=== PATIENT | male | born 1980 | race African-American/Black ===

== ENCOUNTER 2017-09-06 21:54 | Emergency (ER) | payer SELFPAY ==
[2017-09-06 22:10] VITALS: BP 122/69; PULSE 86; TEMP 97.9; BMI 27.5
--- NOTE | 2017-09-06 22:40 | PDOC ---
History of Present Illness - General Chief Complaint: Back Pain Stated Complaint: PAIN, ACUTE Time Seen by Provider: 09/06/17 22:11 History Source: Patient Exam Limitations: No Limitations - History of Present Illness Initial Comments: 09/06/17 22:58 37-year-old male presents to the emergency department complaining of right sided muscular discomfort 4 hours. Patient states he believes he slept wrong on his right side causing muscular pain. Patient denies any injuries, falls, trauma, headaches, dizziness, lightheadedness, neck pain, back pains, chest pain , shortness of breath, abdominal pains, Oskar numbness or tingling sensation, bladder or bowel dysfunction. Past History - Past Medical History Allergies/Adverse Reactions: Allergies Allergy/AdvReac Type Severity Reaction Status Date / Time No Known Allergies Allergy Verified 09/06/17 22:10 Home Medications: Ambulatory Orders NK [No Known Home Medication] 09/06/17 COPD: No - Suicide/Smoking/Psychosocial Hx Smoking History: Never smoked Have you smoked in the past 12 months: No Information on smoking cessation initiated: No Hx Alcohol Use: No Drug/Substance Use Hx: No Substance Use Type: None Review of Systems - Review of Systems Able to Perform ROS?: Yes Comments:: 09/06/17 22:47 CONSTITUTIONAL: Absent: fever, chills, diaphoresis, generalized weakness, malaise, loss of appetite HEENT: Absent: rhinorrhea, nasal congestion, throat pain, throat swelling, difficulty swallowing, mouth swelling, ear pain, eye pain, visual Changes CARDIOVASCULAR: Absent: chest pain, loss of consciousness, palpitations, irregular heart rate, peripheral edema RESPIRATORY: Absent: cough, shortness of breath, dyspnea with exertion, orthopnea, wheezing, stridor, hemoptysis GASTROINTESTINAL: Absent: abdominal pain, abdominal distension, nausea, vomiting, diarrhea, constipation, melena, hematochezia GENITOURINARY: Absent: dysuria, frequency, urgency, hesitancy, hematuria, flank pain, genital pain MUSCULOSKELETAL: +myalgia Absent: arthralgia, joint swelling SKIN: Absent: rash, itching, pallor HEMATOLOGIC/IMMUNOLOGIC: Absent: easy bleeding, easy bruising, lymphadenopathy, frequent infections ENDOCRINE: Absent: unexplained weight gain, unexplained weight loss, heat intolerance, cold intolerance NEUROLOGIC: Absent: headache, focal weakness or paresthesias, dizziness, unsteady gait, seizure, mental status changes, bladder or bowel incontinence PSYCHIATRIC: Absent: anxiety, depression, suicidal or homicidal ideation, hallucinations. Is the patient limited Uzbek proficient: No *Physical Exam - Vital Signs Last Vital Signs Temp Pulse Resp BP Pulse Ox 97.9 F 86 18 122/69 100 09/06/17 22:05 09/06/17 22:05 09/06/17 22:05 09/06/17 22:05 09/06/17 22:05 - Physical Exam Comments: 09/06/17 22:47 GENERAL: Well developed, well nourished. Awake and alert. No acute distress. HEENT: Normocephalic, atraumatic. PERRLA, EOMI. No conjunctival pallor. Sclera are non- icteric. Moist mucous membranes. Oropharynx is clear. NECK: Supple. Full ROM. No JVD. Carotid pulses 2+ and symmetric, without bruits. No thyromegaly. No lymphadenopathy. CARDIOVASCULAR: Regular rate and rhythm. No murmurs, rubs, or gallops. Distal pulses are 2+ and symmetric. PULMONARY: No evidence of respiratory distress. Lungs clear to auscultation bilaterally. No wheezing, rales or rhonchi. ABDOMINAL: Soft. Non-tender. Non-distended. No rebound or guarding. No organomegaly. Normoactive bowel sounds. MUSCULOSKELETAL Normal range of motion at all joints. No bony deformities or tenderness. No CVA tenderness. EXTREMITIES: No cyanosis. No clubbing. No edema. No calf tenderness. SKIN: Warm and dry. Normal capillary refill. No rashes. No jaundice. NEUROLOGICAL: Alert, awake, appropriate. Cranial nerves 2-12 intact. No deficits to light touch and temperature in face, upper extremities and lower extremities. No motor deficits in the in face, upper extremities and lower extremities. Normoreflexic in the upper and lower extremities. Normal speech. Toes are down- going bilaterally. Gait is normal without ataxia. PSYCHIATRIC: Cooperative. Good eye contact. Appropriate mood and affect. *DC/Admit/Observation/Transfer Diagnosis at time of Disposition: Muscular pain - Discharge Dispostion Disposition: HOME Condition at time of disposition: Stable Admit: No - Referrals Referrals: Kapil Barraza MD [Staff Physician] - - Patient Instructions Printed Discharge Instructions: DI for Musculoskeletal Pain Additional Instructions: Ice; 20 mins on alternating with 20 mins off for 48 hours while awake. Rest Follow up with your orthopedic surgeon or the one listed on the discharge form. Return to the ER for severe/persistent/worsening symptoms, extremity numbness/ tingling sensation. - Post Discharge Activity
[2017-09-06] MEDS ORDERED: KETOROLAC TROMETHAMINE 60 MG/2 ML VIAL IM ONE (22:43)
[2017-09-06] MEDS ORDERED: KETOROLAC TROMETHAMINE 30 MG/1 ML VIAL ONE (22:49)
== END 2017-09-06 23:02 | disposition home or self-care (01) ==
LOC: JERFT 21:54
PROC: 3E0233Z Introduction of Anti-inflammatory into Muscle, Percutaneous Approach (ICD-10-PCS; principal; 2017-09-06)
DX: M79.1 Myalgia (principal)
CPT/HCPCS: 99281-25

== ENCOUNTER 2017-10-31 22:57 | Emergency (ER) | payer SELFPAY ==
[2017-11-01 00:30] VITALS: BP 122/93; PULSE 89; TEMP 98.3; BMI 27.6
[2017-11-01] MEDS ORDERED: ALBUTEROL SO4 2.5/IPRATROPIUM 0.5 INH SOL 3 ML VIAL.NEB. NEB ONE ×2 (00:31→00:34)
[2017-11-01] MEDS ORDERED: guaiFENesin 200 MG/10 ML 10 ML UNIT-DOSE CUPS PO ONE (00:31)
[2017-11-01] MEDS ORDERED: guaiFENesin/D-METHORPHAN HB 10 ML UNIT-DOSE CUPS ONE (00:34)
--- NOTE | 2017-11-01 01:21 | PDOC ---
History of Present Illness - General Chief Complaint: Pain Stated Complaint: FATIGUE Time Seen by Provider: 11/01/17 00:01 History Source: Patient Exam Limitations: No Limitations - History of Present Illness Initial Comments: 11/01/17 00:40 Patient is a 37-year-old male history of scoliosis with rods, c/o cough x 3 days. Describes the cough as a mostly dry, occasionally white sputum. States subjective fever yesterday, chest pain with coughing which is 7/10. States "I just want to check to make sure I dont have Pneumonia". Denies runny nose, nasal congestion. States his son was sick started last week with an upper respiratory infection then eventually was treated for bilateral ear infection. Past medical history: As above Social history: Negative cigarettes, EtOH, drugs All: NKDA GENERAL/CONSTITUTIONAL: [No fever or chills. No weakness. No weight change.] HEAD, EYES, EARS, NOSE AND THROAT: [No change in vision. No ear pain or discharge. No sore throat.] CARDIOVASCULAR: [No chest pain or shortness of breath.] RESPIRATORY: (+)cough, (-) wheezing, or hemoptysis.] GASTROINTESTINAL: [No nausea, vomiting, diarrhea or constipation. No rectal bleeding.] GENITOURINARY: [No dysuria, frequency, or change in urination.] MUSCULOSKELETAL: [No joint or muscle swelling or pain. No neck or back pain.] SKIN AND BREASTS: [No rash or easy bruising.] NEUROLOGIC: [No headache, vertigo, loss of consciousness, or loss of sensation.] PSYCHIATRIC: [No depression or anxiety.] ENDOCRINE: [No increased thirst. No abnormal weight change.] HEMATOLOGIC/LYMPHATIC: [No anemia, easy bleeding, or history of blood clots.] ALLERGIC/IMMUNOLOGIC: [No hives or skin allergy. No latex allergy.] GENERAL: [The patient is awake, alert, and fully oriented, in no acute distress , occasional cough.] HEAD: [Normal with no signs of trauma.] EYES: [Pupils equal, round and reactive to light, extraocular movements intact, sclera anicteric, conjunctiva clear.] ENT: [Ears normal, nares patent, oropharynx clear without exudates. Moist mucous membranes.] NECK: [Normal range of motion, supple without lymphadenopathy, JVD, or masses.] LUNGS: [Breath sounds equal, clear to auscultation bilaterally. No wheezes, and no crackles.] HEART: [Regular rate and rhythm, normal S1 and S2 without murmur, rub.] ABDOMEN: [Soft, nontender, normoactive bowel sounds. No guarding, no rebound. No masses.] EXTREMITIES: [Normal range of motion, no edema. No clubbing or cyanosis. No cords, erythema, or tenderness.] NEUROLOGICAL: [Cranial nerves II through XII grossly intact. Normal speech, normal gait.] PSYCH: [Normal mood, normal affect.] SKIN: [Warm, Dry, normal turgor, no rashes or lesions noted.] 11/01/17 01:38 Past History - Past Medical History Allergies/Adverse Reactions: Allergies Allergy/AdvReac Type Severity Reaction Status Date / Time No Known Allergies Allergy Verified 11/01/17 00:26 Home Medications: Ambulatory Orders NK [No Known Home Medication] 09/06/17 COPD: No Other medical history: Scoliosis - Suicide/Smoking/Psychosocial Hx Smoking History: Never smoked Have you smoked in the past 12 months: No Information on smoking cessation initiated: No Hx Alcohol Use: No Drug/Substance Use Hx: No Substance Use Type: None *Physical Exam - Vital Signs Last Vital Signs Temp Pulse Resp BP Pulse Ox 98.3 F 89 19 122/93 97 11/01/17 00:26 11/01/17 00:26 11/01/17 00:26 11/01/17 00:26 11/01/17 00:26 ED Treatment Course - RADIOLOGY Radiology Studies Ordered: Category Date Time Status CHEST PA & LAT [RAD] Stat Radiology 11/01/17 00:29 Ordered Medical Decision Making - Medical Decision Making 11/01/17 01:31 Patient is a 37-year-old male history of scoliosis with rods, c/o cough x 3 days , who has had sick contact with a child with who had upper respiratory infection. Symptoms are consistent with an upper respiratory infection with treat as such. Chest X-ray ruled out pneumonia, Duo neb. CXR neg I discussed the physical exam findings, ancillary test results and final diagnoses with the patient. I answered all of the patient's questions. The patient was satisfied with the care received and felt comfortable with the discharge plan and treatment plan. The Patient agrees to follow up with the primary care physician within 24-72 hours. *DC/Admit/Observation/Transfer Diagnosis at time of Disposition: Atypical chest pain URI (upper respiratory infection) Qualifiers: URI type: unspecified viral URI Qualified Code(s): J06.9 - Acute upper respiratory infection, unspecified - Discharge Dispostion Disposition: HOME Condition at time of disposition: Stable - Referrals - Patient Instructions Printed Discharge Instructions: DI for Viral Upper Respiratory Infection -- Adult Additional Instructions: Your Discharge Instructions: You must call primary care physician within 24 hours to arrange follow-up. Return to the Emergency Department with any new, persistent or worsening symptoms, for fever, chills, SOB, dizziness or any other concerning changes that may occur. - Post Discharge Activity
== END 2017-11-01 01:47 | disposition home or self-care (01) ==
LOC: JER 22:57
PROC: 3E0F7GC Introduction of Other Therapeutic Substance into Respiratory Tract, Via Natural or Artificial Opening (ICD-10-PCS; principal; 2017-10-31)
DX: J06.9 Acute upper respiratory infection, unspecified (principal); R07.89 Other chest pain
CPT/HCPCS: 71046-TC; 99282-25

== ENCOUNTER 2017-11-05 14:37 | Emergency (ER) | payer SELFPAY ==
--- NOTE | 2017-11-05 15:29 | PDOC ---
Rapid Medical Evaluation Time Seen by Provider: 11/05/17 15:29 Medical Evaluation: Allergies Allergy/AdvReac Type Severity Reaction Status Date / Time No Known Allergies Allergy Verified 11/01/17 00:26 11/05/17 15:29 I have performed a brief in-person evaluation of this patient. The patient presents with a chief complaint of: cough w/ malaise, chills x several days, seen in ED 10/31 w/ neg CXR Pertinent physical exam findings:Unremarkable exam I have ordered the following:flu swab The patient will proceed to the ED for further evaluation. 11/05/17 15:30 11/05/17 15:32
[2017-11-05 15:34] VITALS: BP 113/75; PULSE 81; TEMP 98.1; BMI 27.6
[2017-11-05] MEDS ORDERED: predniSONE 20 MG TABLET (UD) ONE (16:27)
[2017-11-05] MEDS ORDERED: predniSONE 20 MG TABLET (UD) PO ONE (16:31)
[2017-11-05] MEDS ORDERED: ALBUTEROL SO4 2.5/IPRATROPIUM 0.5 INH SOL 3 ML VIAL.NEB. NEB ONE ×2 (16:31→16:56)
--- NOTE | 2017-11-05 16:35 | PDOC ---
History of Present Illness - General Chief Complaint: Cold Symptoms Stated Complaint: FOLLOW UP Time Seen by Provider: 11/05/17 15:29 History Source: Patient Exam Limitations: No Limitations - History of Present Illness Initial Comments: 11/05/17 16:27 Return to this emergency Department from previous visit 5 days ago to be reevaluated for persistent fevers, cough with thick yellowish phlegm, shortness of breath and some mild dizziness. States last week he had chest x-ray that ruled out pneumonia, and was discharged with a viral syndrome and no medications. Patient states has been using Robitussin and [id number] cold medicines with minimal resolved. States is persistent cough and in fact phlegm has worsened. Patient states is felt fevers and chills, generalized body aches, and has not felt any resolved since last week. Timing/Duration: reports: getting worse Severity: reports: mild, moderate Associated Symptoms: reports: cough, earache, fever/chills, lightheadedness, muscle aches, nasal congestion, nasal drainage Past History - Travel Traveled outside of the country in the last 30 days: No Close contact w/someone who was outside of country & ill: No - Past Medical History Allergies/Adverse Reactions: Allergies Allergy/AdvReac Type Severity Reaction Status Date / Time No Known Allergies Allergy Verified 11/01/17 00:26 Home Medications: Ambulatory Orders Albuterol Sulfate Inhaler - [Ventolin HFA Inhaler -] 1 - 2 inh PO Q4H #1 inhaler 11/05/17 Azithromycin [Zithromax -] 250 mg PO UTDICT #6 tab 11/05/17 Prednisone [Deltasone -] 20 mg PO BID #8 tablet 11/05/17 COPD: No - Suicide/Smoking/Psychosocial Hx Smoking History: Never smoked Have you smoked in the past 12 months: No Information on smoking cessation initiated: No Hx Alcohol Use: No Drug/Substance Use Hx: No Substance Use Type: None Review of Systems - Review of Systems Able to Perform ROS?: Yes Is the patient limited Ghanaian proficient: Yes Constitutional: Yes: Symptoms Reported, See HPI, Chills, Fever, Loss of Appetite , Malaise HEENTM: Yes: Symptoms Reported, See HPI Respiratory: Yes: Symptoms reported, See HPI, Wheezing Cardiac (ROS): No: Symptoms Reported Integumentary: Yes: Symptoms Reported, See HPI All Other Systems: Reviewed and Negative *Physical Exam - Vital Signs Last Vital Signs Temp Pulse Resp BP Pulse Ox 98.1 F 81 18 113/75 98 11/05/17 15:32 11/05/17 15:32 11/05/17 15:32 11/05/17 15:32 11/05/17 15:32 - Physical Exam General Appearance: Yes: Nourished, Appropriately Dressed, Apparent Distress, Moderate Distress HEENT: positive: TMs Normal, Pharyngeal Erythema, Nasal Congestion, Rhinorrhea Neck: positive: Supple, Lymphadenopathy (R), Lymphadenopathy (L) (congested but landmarks easily visualized). negative: Tender Respiratory/Chest: positive: Wheezing. negative: Lungs Clear (inspiratory and expiratory breath sounds) Cardiovascular: positive: Regular Rate Gastrointestinal/Abdominal: positive: Normal Bowel Sounds, Soft. negative: Tender, Distended, Guarding, Rebound Musculoskeletal: positive: Normal Inspection. negative: CVA Tenderness Extremity: positive: Normal Capillary Refill, Normal Inspection. negative: Tender Integumentary: positive: Normal Color, Dry, Warm, Pale Neurologic: positive: senior data mining analyst II-XII NML intact, Fully Oriented, Alert, Normal Mood/ Affect, Normal Response, Motor Strength 5/ ED Treatment Course - ADDITIONAL ORDERS Additional order review: 11/05/17 15:30 Influenza Types A,B Antigen (BARBARA) - Final Nasopharyngeal Swab - Final *DC/Admit/Observation/Transfer Diagnosis at time of Disposition: URI (upper respiratory infection) Qualifiers: URI type: unspecified URI Qualified Code(s): J06.9 - Acute upper respiratory infection, unspecified - Discharge Dispostion Disposition: HOME Condition at time of disposition: Stable Admit: No - Prescriptions Prescriptions: Albuterol Sulfate Inhaler - [Ventolin HFA Inhaler -] 1 - 2 inh PO Q4H #1 inhaler Azithromycin [Zithromax -] 250 mg PO UTDICT #6 tab Prednisone [Deltasone -] 20 mg PO BID #8 tablet - Referrals - Patient Instructions Printed Discharge Instructions: DI for Acute Bronchitis Additional Instructions: Rest, drink lots of fluids: Teas, water, soups, Pedialyte Saltwater gargles Steamy showers/seem to face break up mucus Avoid contact with others until fevers and cough resolved Lots of handwashing and good hygiene Continue [id number] medications for symptomatic relief Tylenol or Motrin for fever and pain Continue albuterol nebulizers every 4-6 hours for the next 2 days then as needed for continued cough Prednisone as directed until completed Followup with private physician in one to 2 days Return to emergency department / pediatric hospital for worsened symptoms, fevers, dehydration - Post Discharge Activity Forms/Work/School Notes: Back to Work
== END 2017-11-05 17:22 | disposition home or self-care (01) ==
LOC: JERFT 14:37
PROC: 3E0F7GC Introduction of Other Therapeutic Substance into Respiratory Tract, Via Natural or Artificial Opening (ICD-10-PCS; principal; 2017-11-05)
PROC: 3E0F7GC Introduction of Other Therapeutic Substance into Respiratory Tract, Via Natural or Artificial Opening (ICD-10-PCS; 2017-11-05)
DX: J20.9 Acute bronchitis, unspecified (principal)
CPT/HCPCS: 87804; 99281-25

== ENCOUNTER 2018-03-24 09:16 | Emergency (ER) | payer SELFPAY ==
[2018-03-24 09:24] VITALS: BP 110/71; PULSE 73; TEMP 97.9; BMI 26.4
--- NOTE | 2018-03-24 09:55 | PDOC ---
History of Present Illness - General Chief Complaint: Injury Stated Complaint: LT HAND INJURY Time Seen by Provider: 03/24/18 09:44 History Source: Patient Exam Limitations: No Limitations - History of Present Illness Initial Comments: CHIEF COMPLAINT: 38 y/o male with left hand bump for 5 days. HISTORY OF PRESENT ILLNESS: Patient denies trauma. States appeared out of nowhere. No fever, pain, decreased ROM, streaking. Vital signs on arrival are within normal limits REVIEW OF SYSTEMS: GENERAL/CONSTITUTIONAL: No fever/chills. No weakness. No weight change. MUSCULOSKELETAL: +bump to left hand. No neck or back pain. SKIN: No rash or easy bruising. NEUROLOGIC: No headache, vertigo, loss of consciousness, or loss of sensation. PHYSICAL EXAM: VITAL_SIGNS: within normal limits GENERAL_APPEARANCE: alert, cooperative, no obvious discomfort. MENTAL_STATUS: speech clear, oriented X 3, responds appropriately to questions. NEURO: motor intact and sensory intact in injured extremity. EXTREMITIES: 1cm well circumscribed, mobile, non tender cyst to left dorsal hand along 2nd distal metacarpal, consistent with ganglion cyst. No streaking, warmth or erythema to surrounding area. Full ROM of fingers and hand. SKIN: warm, dry, good color. Past History - Past Medical History Allergies/Adverse Reactions: Allergies Allergy/AdvReac Type Severity Reaction Status Date / Time No Known Allergies Allergy Verified 03/24/18 09:20 Home Medications: Ambulatory Orders Albuterol Sulfate Inhaler - [Ventolin HFA Inhaler -] 1 - 2 inh PO Q4H #1 inhaler 11/05/17 Azithromycin [Zithromax -] 250 mg PO UTDICT #6 tab 11/05/17 predniSONE [Deltasone -] 20 mg PO BID #8 tablet 11/05/17 COPD: No - Suicide/Smoking/Psychosocial Hx Smoking History: Never smoked Have you smoked in the past 12 months: No Hx Alcohol Use: No Drug/Substance Use Hx: No Substance Use Type: None *Physical Exam - Vital Signs Last Vital Signs Temp Pulse Resp BP Pulse Ox 97.9 F 73 18 110/71 100 03/24/18 09:22 03/24/18 09:22 03/24/18 09:22 03/24/18 09:22 03/24/18 09:22 Medical Decision Making - Medical Decision Making A/P: 38 y/o male with left hand ganglion cyst. Suggested motrin for pain if needed and f/u with surgeon. The patient verbalizes understanding of all instructions, has no further questions and is awaiting discharge. *DC/Admit/Observation/Transfer Diagnosis at time of Disposition: Ganglion cyst of finger of left hand - Discharge Dispostion Disposition: HOME Condition at time of disposition: Good - Referrals Referrals: Isaac Campos MD [Staff Physician] - Call tomorrow - Patient Instructions Printed Discharge Instructions: Ganglion Cyst Additional Instructions: Discharge Instructions: -You have what appears to be a ganglion cyst -Please follow up with Dr. Campos for options for removal -Take Motrin if needed for pain - Post Discharge Activity Forms/Work/School Notes: Back to Work
== END 2018-03-24 10:20 | disposition home or self-care (01) ==
LOC: JERFT 09:16
DX: M67.442 Ganglion, left hand (principal)
CPT/HCPCS: 99281-25

== ENCOUNTER 2018-06-09 17:05 | Emergency (ER) | payer SELFPAY ==
--- NOTE | 2018-06-09 17:08 | PDOC ---
Rapid Medical Evaluation Time Seen by Provider: 06/09/18 17:06 Medical Evaluation: Allergies Allergy/AdvReac Type Severity Reaction Status Date / Time No Known Allergies Allergy Verified 06/09/18 17:06 I have performed a brief in-person evaluation of this patient. The patient presents with a chief complaint of: right upper back pain worse with movement x 6 days Pertinent physical exam findings: pain reproduced with palpation of right medial scapular border I have ordered the following: nothing The patient will proceed to the ED for further evaluation. Discharge Disposition - Diagnosis Muscular pain - Referrals - Patient Instructions - Post Discharge Activity
[2018-06-09 17:10] VITALS: BP 108/58; PULSE 86; TEMP 98.3; BMI 27.3
--- NOTE | 2018-06-09 17:31 | PDOC ---
History of Present Illness - General Chief Complaint: Back Pain Stated Complaint: BACK PAIN Time Seen by Provider: 06/09/18 17:06 History Source: Patient Exam Limitations: No Limitations - History of Present Illness Initial Comments: Patient is a 38-year-old male who states that over the past 3 days he has had pain located in the muscles adjacent to the thoracic spine on the right. He denies injury or trauma. Patient does have a history of scoliosis and had spinal revision approximately 20 years ago. Patient denies injury or trauma. Patient denies urinary symptoms. Patient denies loss of bowel/bladder control or urinary retention. Patient denies upper or lower extremity paresthesia. He denies fever or history of IV drug use. He describes the pain as a throb and rates at a 5 out of 10. He states it is worse with movement. He denies attempting [id number] medications. Patient denies any relieving factors. 06/09/18 17:26 Past History - Travel Traveled outside of the country in the last 30 days: No Close contact w/someone who was outside of country & ill: No - Past Medical History Allergies/Adverse Reactions: Allergies Allergy/AdvReac Type Severity Reaction Status Date / Time No Known Allergies Allergy Verified 06/09/18 17:06 Home Medications: Ambulatory Orders Cyclobenzaprine HCl 5 mg PO TID PRN 3 Days #10 tablet 06/09/18 COPD: No Other medical history: scoliosis - Suicide/Smoking/Psychosocial Hx Smoking History: Never smoked Have you smoked in the past 12 months: No Information on smoking cessation initiated: No Hx Alcohol Use: No Drug/Substance Use Hx: No Substance Use Type: None Review of Systems - Review of Systems Able to Perform ROS?: Yes Musculoskeletal: Yes: Back Pain. No: Neck Pain All Other Systems: Reviewed and Negative *Physical Exam - Vital Signs Last Vital Signs Temp Pulse Resp BP Pulse Ox 98.3 F 86 18 108/58 100 06/09/18 17:06 06/09/18 17:06 06/09/18 17:06 06/09/18 17:06 06/09/18 17:06 - Physical Exam Comments: Constitutional: VS stated, pt appears in no apparent distress; ambulated to exam room, steady gait noted. Skin: Warm and dry. Intact, no lesions or excoriations. Patient has 2 scars on his back from his previous scoliosis revision. No signs of secondary infection. Head: Normocephalic; atraumatic Eyes: conjunctiva pink without injection or discharge. Throat: Oropharynx with pink and moist mucosa. Neck: Supple, non-tender, with full ROM, trachea midline, no anterior/posterior cervical chain lymphadenopathy, thyroid nonpalpable. No stridor or bruits. Lungs: Bilateral breath sounds clear upon auscultation. No adventitious breath sounds. Heart: Regular rate and rhythm, S1/S2 auscultated. No murmurs, rubs, or gallops. No visible pulsations, heaves, or lifts on precordium. Abdomen: Soft and non-tender. Bowel sounds present in all 4 quadrants, no hepatosplenomegaly, No bruits auscultated. No guarding or rebound. No masses or visible pulsations present. No suprapubic tenderness. No CVAT. No bruits. Musculoskeletal:Normal curves of cervical, thoracic, and lumbar spine. Full ROM of cervical and lumbar spine. Proximal joints normal; neck, arms, hips, knees, and ankles with full range of active and passive motion. Muscles appear symmetric. Sensation intact medially and laterally. No saddle anesthesia. DTRs+ 2. No tenderness on palpation of spine. 5/5 strength in upper extremities and lower extremity groups. Neurologic: Awake, alert. Conversation fluent. Psychiatric: Appropriate affect. 06/09/18 17:28 Medical Decision Making - Medical Decision Making Patient has had no injury or trauma. He has no pain upon palpation of the cervical, thoracic or lumbosacral spine. I feel this more musculoskeletal in nature. I do not feel imaging is warranted at this time. He also does not have any red flag signs which warrant an emergent MRI. 06/09/18 17:29 *DC/Admit/Observation/Transfer Diagnosis at time of Disposition: Muscular pain, Musculoskeletal back pain - Discharge Dispostion Disposition: HOME Condition at time of disposition: Stable Decision to Admit order: No - Prescriptions Prescriptions: Cyclobenzaprine HCl 5 mg PO TID PRN 3 Days #10 tablet PRN Reason: Moderate Pain - Referrals - Patient Instructions Printed Discharge Instructions: DI for Musculoskeletal Pain Additional Instructions: Take ibuprofen 600 milligrams every 6 hours. Take muscle relaxer as directed. The muscle relaxer is sedating. Do not drive, drink alcohol or work whilee taking this medication. Follow-up with your PCP. - Post Discharge Activity Forms/Work/School Notes: Back to Work
== END 2018-06-09 17:43 | disposition home or self-care (01) ==
LOC: JERFT 17:05 → JER 17:05 → JERFT 17:43
DX: M54.9 Dorsalgia, unspecified (principal)
CPT/HCPCS: 99281-25

== ENCOUNTER 2019-04-19 08:10 | Emergency (ER) | payer SELFPAY ==
[2019-04-19 08:16] VITALS: BP 128/75; PULSE 79; TEMP 98; BMI 26.4
--- NOTE | 2019-04-19 08:52 | PDOC ---
History of Present Illness - General Chief Complaint: Ear Problem Stated Complaint: RT EARACHE Time Seen by Provider: 04/19/19 08:26 History Source: Patient Exam Limitations: No Limitations Past History - Past Medical History Allergies/Adverse Reactions: Allergies Allergy/AdvReac Type Severity Reaction Status Date / Time No Known Allergies Allergy Verified 04/19/19 08:16 Home Medications: Ambulatory Orders Neomycin/Polymyxn/Hc [Cortisporin Otic Solution -] 4 drop AD Q6H #1 bottle 04/19 COPD: No - Suicide/Smoking/Psychosocial Hx Smoking History: Never smoked Have you smoked in the past 12 months: No Information on smoking cessation initiated: No Hx Alcohol Use: No Drug/Substance Use Hx: No Substance Use Type: None *Physical Exam - Vital Signs Last Vital Signs Temp Pulse Resp BP Pulse Ox 98 F 79 18 128/75 100 04/19/19 08:15 04/19/19 08:15 04/19/19 08:15 04/19/19 08:15 04/19/19 08:15 - Physical Exam General Appearance: No: Apparent Distress HEENT: positive: Pharynx Normal, Other (R ear canal narrowing, +pain on pressing R tragus, difficult to view TM, no drainage from ear, no mastoid tenderness). negative: Nasal Congestion, Rhinorrhea, Sinus Tenderness Respiratory/Chest: positive: Lungs Clear, Normal Breath Sounds. negative: Respiratory Distress Cardiovascular: positive: Regular Rhythm, Regular Rate, S1, S2. negative: Murmur Integumentary: positive: Normal Color Neurologic: positive: Alert, Normal Mood/Affect Medical Decision Making - Medical Decision Making 39 y/o M with no sig pmh presents with R ear and throat pain from today. Mentions having subjective fever and chills 2 days ago. Did not take any antipyretics today. Denies cough, congestion, rhinorrhea, sob, cp, abd pain, n/v /d. Concern for otitis externa 04/19/19 08:48 *DC/Admit/Observation/Transfer Diagnosis at time of Disposition: Otitis externa Qualifiers: Otitis externa type: unspecified type Chronicity: acute Laterality: right Qualified Code(s): H60.501 - Unspecified acute noninfective otitis externa, right ear - Discharge Dispostion Disposition: HOME Condition at time of disposition: Stable Decision to Admit order: No - Prescriptions Prescriptions: Neomycin/Polymyxn/Hc [Cortisporin Otic Solution -] 4 drop AD Q6H #1 bottle - Referrals - Patient Instructions Printed Discharge Instructions: DI for Otitis Externa Additional Instructions: Thank you for choosing [facility]. It was a pleasure taking care of you. Avoid getting water in your ear Avoid putting Q-tips or other objects in your ear Use the ear drops for 1 week as directed Follow-up with your doctor in 2 days Return to the Emergency Department if your symptoms worsen or persist or have other concerning symptoms. - Post Discharge Activity
== END 2019-04-19 08:55 | disposition home or self-care (01) ==
LOC: JERFT 08:10
DX: H60.501 Unspecified acute noninfective otitis externa, right ear (principal)
CPT/HCPCS: 99281-25

== ENCOUNTER 2024-01-18 10:00 | Emergency (ER) | payer BC ==
[2024-01-18 10:09] VITALS: BP 110/76; PULSE 70; RESP 18; TEMP 98.3; BMI 26.4
== END 2024-01-18 11:27 | disposition home or self-care (01) ==
LOC: JERFT 10:00
DX: H10.31 Unspecified acute conjunctivitis, right eye (principal)
CPT/HCPCS: 99283-25

== ENCOUNTER 2024-04-07 09:24 | Emergency (ER) | payer BC ==
[2024-04-07 09:30] VITALS: BP 105/68; PULSE 61; RESP 18; TEMP 97.7; BMI 26.7
== END 2024-04-07 10:47 | disposition home or self-care (01) ==
LOC: JERFT 09:24
DX: M79.601 Pain in right arm (principal); X50.0XXA Overexertion from strenuous movement or load, initial encounter
CPT/HCPCS: 73060-TC-RT-FY; 99283-25

== ENCOUNTER 2024-10-26 12:15 | Emergency (ER) | payer BC ==
[2024-10-26 12:22] VITALS: BP 145/89; PULSE 93; RESP 18; TEMP 98.6; BMI 27.8
[2024-10-26 14:14] LABS: THROAT:GRP A STREP DETECTED (NOTDETECTED)
== END 2024-10-26 13:42 | disposition home or self-care (01) ==
LOC: JERFT 12:15
DX: J03.90 Acute tonsillitis, unspecified (principal); R07.0 Pain in throat; R13.10 Dysphagia, unspecified; Z20.822 Contact with and (suspected) exposure to COVID-19
CPT/HCPCS: 0241U-QW; 87651; 99283-25